=== PATIENT | female | born 1980 ===

== ENCOUNTER → 2023-05-31 07:27 | Outpatient (REF) | payer OTHER, SELFPAY | LOC: MRI 07:27 | PROVIDERS: ATTENDING PHYSICIAN Orthopaedic Surgery; FAMILY PHYSICIAN Family Medicine | DX: S82.852D Displaced trimalleolar fracture of left lower leg, subsequent encounter for closed fracture with routine healing (principal); M25.572 Pain in left ankle and joints of left foot; M25.872 Other specified joint disorders, left ankle and foot | CPT/HCPCS: 73721 ==